=== PATIENT | male | born 1955 | race Caucasian/White ===

== ENCOUNTER 2024-09-21 11:18 | Outpatient (AMB) | payer OTHER, MEDICAID, SELFPAY ==
--- NOTE | 2024-09-21 11:56 | AM.OFFWIN_ITS ---
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 Patient Tobacco Use Status: Never used Tobacco Allergies No Known Allergies Allergy (Unverified 02/15/20 18:17) HPI HPI Comments History of Present Illness Details History of Present Illness - The patient is a 68-year-old male pres enting with a complaint of a rash and itching on the left arm. - Symptoms began three days ago, charact erized by the appearance of a lesion on the left arm, initially suspected to be an insect bite. - Concern of Herpes Zoster (Shingles) wa s raised due to a similar recent condition experienced by the patient's . He thinks the rash is similar, her shingles is now resolved. - The condition is primarily characteriz ed by itching, with no associated pain or burning, and is localized to the T2 dermatome region on the left arm. - Symptoms are partially relieved by hussain lying antibacterial gel but recur within half an hour. Physical Exam General: Cooperative, healthy appearing, comfortable, no acute distress and well developed Orientation: Patient oriented x3 Limitations: No limitations Head: Normal to inspection Ears: Hearing grossly normal bilaterally Nose: Normal External nose present Face and sinus: Normal facial exam Eyes: Appearance normal, both eyes and all related structures Neck: Normal visual inspection and Yes full ROM Respiratory: Normal respiratory effort and able to speak in complete sentences. Skin: Left arm T1 dermatome has 5 raised erythematous lesions 0.5cm round on upper arm bicept area, 2 scabbed lesions near the left wrist. Neuro: Patient oriented x3 Extremities: Normal to inspection [facility] Social History Patient Tobacco Use Status: Never used Tobacco Review of Systems Const All systems reviewed & are unremarkable except as noted in HPI and below Physical Exam Vital Signs: Last Vital Signs Temp 98.6 F 09/21/24 12:02 Pulse 100 09/21/24 12:02 BP 122/84 09/21/24 12:02 Pulse Ox 97 09/21/24 12:02 Oxygen Delivery Method Room Air 09/21/24 12:02 Assessment & Plan Assessment & Plan (1) Shingles rash: Code(s): B02.9 - Zoster without complications Qualifiers: Herpes zoster complications: without complications Qualified Code(s): B02.9 - Zoster without complications Plan: Based on the examination, I considered the possibility of Herpes Zoster due to the T2 dermatomal pattern of the rash but also pondered the likelihood of bedbug bites considering the pronounced itching. As the period for antiviral medication efficacy had passed, pt was requesting he start it, so I did send it but noted limited efficacy at this point. In case of worsening symptoms, a rash that spreads outside of the dermatome (educated pt on where that is and showed him pictures online), he should return. I do have a slight concern that this could be bedbugs and discussed this with the patient. However, due to the distribution, it not being in the webbing of the fingers, toes or in the creases of the body, and being in one dermatome, I decided it was best to treat him for shingles initally with return precautions. Patient was informed and verbally consented to the use of an ambient scribe for clinic note documentation during this visit. Medications: New valacyclovir 1,000 mg PO Q8H 7 days 21 tabs 0RF Coding Level of Care Code New Pt Level 3 (41014) Diagnoses Herpes zoster without complication B02.9 Herpes zoster complications: without complications
[2024-09-21 12:02] VITALS: BP 122/84; PULSE 100; TEMP 37; O2SAT 97
== END 2024-09-21 12:26 | disposition home or self-care (01) ==
PROVIDERS: PCP Internal Medicine; Visit Provider Physician Assistant
DX: B02.9 Zoster without complications (principal)

== ENCOUNTER → 2024-09-21 11:18 | Outpatient (BNVA) | payer OTHER, MEDICAID, SELFPAY | PROVIDERS: PCP Internal Medicine; Visit Provider Physician Assistant ==